=== PATIENT | female | born 1990 | race Two or more races ===

== ENCOUNTER 2018-12-05 11:28 | Emergency (ER) | payer MEDICAID ==
[~2018-12-05 11:28] MED LIST: FERR325T50 PO; FOLI1TAB6 PO
[2018-12-05] MEDS ORDERED: diphenhdrAMINE HCL 25 MG CAP PO ONE (12:15)
[2018-12-05] MEDS ORDERED: methylPREDNISolone SOD SUCC 125 MG/2 ML VL IM ONE (12:15)
[2018-12-05 13:13] VITALS: BP 128/78
== END 2018-12-05 13:11 | disposition home or self-care (01) ==
LOC: ER 11:28
DX: R21 Rash and other nonspecific skin eruption (principal); Z79.899 Other long term (current) drug therapy
CPT/HCPCS: 96372; 99283; J2930

== ENCOUNTER 2021-02-10 11:38 | Emergency (ER) | payer SELFPAY ==
[~2021-02-10] VITALS: Ht 157.5 cm; Wt 74.4 kg
[2021-02-10 12:20] LABS: Urine WBC None Seen /hpf (0 - 5)
[2021-02-10 12:26] LABS: Urine Bacteria NONE SEEN /hpf (None Seen); Urine Blood 2+ /uL (Negative); Urine Specific Gravity 1.022 (1.001-1.035)
[2021-02-10 12:48] LABS: Basophils # (auto) 0 10 ^3/uL (0-0.2); Basophils % (auto) 0.5 % (0.0-2.0); Eosinophils # (auto) 0.2 10 ^3/uL (0-0.8); Eosinophils % (auto) 1.8 % (0.0-7.0); Hematocrit 40.2 % (36.0-46.0); Hemoglobin 13.8 g/dL (12.2-16.2); Lymphocytes # (auto) 2.9 10 ^3/uL (0.4-5.4); Lymphocytes % (auto) 32.7 % (10.0-50.0); Mean Corpuscular Hemoglobin 32.6 pg (28.0-32.0); Mean Corpuscular Hgb Conc. 34.4 g/dL (32.0-36.0); Mean Corpuscular Volume 94.8 fL (80.0-100.0); Monocytes # (auto) 0.5 10 ^3/uL (0-1.3); Monocytes % (auto) 6.2 % (0.0-12.0); Neutrophils # (auto) 5.1 10 ^3/uL (1.6-8.6); Neutrophils % (auto) 58.8 % (37.0-80.0); Nucleated Red Blood Cells % 0.1 %; Platelet Count (auto) 419 10^3/uL (140-450); Red Blood Cells 4.24 10^6/uL (4.0-5.20); Red Cell Distribution Width 12.8 % (11.8-14.3); White Blood Cell 8.7 10^3/uL (4.4-10.8)
[2021-02-10 13:20] VITALS: BP 144/86
== END 2021-02-10 16:07 | disposition home or self-care (01) ==
LOC: ER 11:38
DX: N92.0 Excessive and frequent menstruation with regular cycle (principal); Z90.89 Acquired absence of other organs
CPT/HCPCS: 36415; 76856; 81001; 84702; 85025

== ENCOUNTER 2022-09-03 17:36 | Emergency (ER) | payer MEDICAID ==
[~2022-09-03] VITALS: Ht 157.5 cm; Wt 70.3 kg
[2022-09-03 18:49] VITALS: BP 140/97
[2022-09-03] MEDS ORDERED: SULF400T11 PO (20:05)
[2022-09-03 20:28] LABS: Urine Bacteria FEW /hpf (None Seen); Urine Blood Negative /uL (Negative); Urine Mucus FEW (None Seen); Urine Specific Gravity 1.026 (1.001-1.035); Urine WBC 30 /hpf (0 - 5)
== END 2022-09-03 20:22 | disposition home or self-care (01) ==
LOC: ER 17:36
DX: N76.4 Abscess of vulva (principal)
CPT/HCPCS: 81001